=== PATIENT | female | born 1955 | race Caucasian/White ===

== ENCOUNTER 2019-04-10 07:32 | Emergency (ER) | payer BC ==
--- NOTE | 2019-04-10 07:50 | ER Document Report ---
ED Cardiac - General Stated Complaint: CHEST PRESSURE Time Seen by Provider: 04/10/19 07:43 Notes: 63-year-old female presents to the ER with chest pain. Patient stated woke her at 4 AM. She described a heaviness in her chest quickly followed by sensation of numbness and tingling in both her hands the pain was heaviness and radiate to her back. She denies any headache blurred vision. Denies extremity weakness but states both hands were numb and tingling. She denies any anxiety or hyperventilation. Denies any fever chills cough or sore throat denies calf pain leg swelling denies ankle swelling. Denies any abdominal pain. Denies nausea. States she did feel slightly short of breath at the time but does not now states she is pain-free at this time. She has not had an episode like this before. Came in via EMS for evaluation EMS gave the patient aspirin and she is feeling well. - Related Data Allergies/Adverse Reactions: Penicillins Adverse Reaction (Verified 04/10/19 07:49) procaine [From Novocain] Adverse Reaction (Verified 04/10/19 07:49) Tetanus Vaccines and Toxoid Adverse Reaction (Verified 04/10/19 07:49) Past Medical History - Social History Smoking Status: Former Smoker Family History: CAD Review of Systems - Review of Systems Constitutional: denies: Chills, Fever EENT: denies: Throat pain Cardiovascular: Chest pain, Dyspnea. denies: Edema Respiratory: denies: Cough, Short of breath Gastrointestinal: denies: Abdominal pain, Nausea, Vomiting Genitourinary: denies: Dysuria, Flank pain, Hematuria Musculoskeletal: Back pain Neurological/Psychological: denies: Headaches -: Yes All other systems reviewed and negative Physical Exam - Vital signs Vitals: Temp 97.8 F 04/10/19 08:00 - Notes Notes: GENERAL_APPEARANCE: well_nourished, alert, cooperative, no_acute_distress, no_obvious_discomfort. VITALS: reviewed, see vital signs table. HEAD: no_swelling\tenderness on the head. EYES: PERRL, EOMI, conjunctiva_clear. NOSE: no_nasal_discharge. MOUTH: (-)decreased moisture. THROAT: no_tonsilar_inflammation, no_airway_obstruction. no_lymphadenopathy NECK: supple, no_neck_tenderness, (-)thyromegaly. BACK: no_back_tenderness. CHEST_WALL: no_chest_tenderness. LUNGS: no_wheezing, no_rales, no_rhonchi, (-)accessory muscle use, good air exchange bilateral. HEART: normal_rate, normal_rhythm, normal_S1, normal_S2, (-)S3, (-)S4, no_murmur, no_rub. ABDOMEN: normal_BS, soft, no_abd_tenderness, (-)guarding, (-)rebound, no_organomegaly, no_abd_masses. EXTREMITIES: good pulses in all_extremities, no_swelling\tenderness in the extremities, no_edema. SKIN: warm, dry, good_color, no_rash. MENTAL_STATUS: speech_clear, oriented_X_3, normal_affect, responds_appropriately to questions. NEURO: Neg Motor or Sensory Deficits on exam, CN 2-12 intact, DTR 2+ symmetric x 4, No cerbellar signs Course - Re-evaluation Re-evalutation: 04/10/19 07:49 63-year-old female presents to the ER with chest discomfort that woke up at 4 AM. Patient is pain-free at this time the discomfort was heaviness in her chest rating to her back and she had bilateral upper extremity numbness and tingling. This may be anxiety or an anginal equivalent. Patient denies diabetes hypertension or hyperlipidemia denies any known heart disease. EKG shows a sinus rhythm with no acute abnormalities. We will get troponins. We will CTA her chest and some of the pain did radiate to her back to rule out PE or dissection. 04/10/19 12:28 Serial troponins are negative. CTA of the chest is negative there is a small groundglass opacity in the upper lobe. This is not a specific nodule however follow-up as needed I spoke with the patient and her family about this. They verbalized understanding will follow-up with her family doctor for this. Otherwise the patient looks well she is discomfort free. The patient did admit that she did have some spicy chicken wings before bed certainly this may contribute to that. I did explain to the patient even though things are very reassuring nothing is ever 100% 2- troponins are reassuring however there is still limitations to that. If she continues to have discomfort in 24 hours she is to return to be reevaluated if anything gets worse she is to return sooner otherwise follow-up with your family doctor for further care. - Vital Signs Vital signs: Temp Pulse Resp BP Pulse Ox 97.8 F 21 H 98 04/10/19 08:00 04/10/19 09:00 04/10/19 09:00 - Laboratory Result Diagrams: 04/10/19 07:12 04/10/19 07:12 Laboratory results interpreted by me: 04/10/19 07:12 RBC 6.20 H MCV 62 L MCH 20.0 L RDW 15.5 H [place] % (Auto) 18.3 H Absolute Monos (auto) 1.6 H - Diagnostic Test Radiology reviewed: Reports reviewed Radiology results interpreted by me: 04/10/19 12:28 Chest/Abdomen CTA 04/10/19 07:47 IMPRESSION: 1. No pulmonary emboli. 2. 4.3 mm ground-glass opacity in the medial aspect of the right upper lobe. Please see below for recommended follow-up. - EKG Interpretation by Me EKG shows normal: Sinus rhythm Rate: Normal Rhythm: NSR Discharge - Discharge Clinical Impression: Chest pain Qualifiers: Chest pain type: other chest pain Qualified Code(s): R07.89 - Other chest pain; R07.8 - Other chest pain Condition: Good Disposition: HOME, SELF-CARE Instructions: Chest Pain of Unclear Cause ([facility]) Additional Instructions: Please follow-up with your doctor for further care. If you continue to have discomfort please return in 24 hours to be rechecked if things get worse return as soon as possible.
[2019-04-10 07:56] LABS: ABSOLUTE EOSINOPHILS # (AUTO) 0.1 10^3/uL (0.0-0.6); ABSOLUTE LYMPHOCYTES (AUTO) 2.7 10^3/uL (0.5-4.7); ABSOLUTE MONOCYTES (AUTO) 1.6 10^3/uL (0.1-1.4); ABSOLUTE NEUT (AUTO) 4.1 10^3/uL (1.7-8.2); BASOPHILS % (AUTO) 0.1 % (0-2); EOSINOPHILS % (AUTO) 1.7 % (0-6); HEMATOCRIT 38.5 % (36.0-47.0); HEMOGLOBIN 12.4 g/dL (12.0-15.5); LYMPHOCYTES % (AUTO) 31.7 % (13-45); MEAN CORPUSCULAR HGB CONC 32.2 g/dL (32.0-36.0); MONOCYTES % (AUTO) 18.3 % (3-13); PLATELET COUNT 266 10^3/uL (150-450); RED CELL DISTRIBUTION WIDTH 15.5 % (11.5-14.0); SEGMENTED NEUTROPHILS % (AUTO) 48.2 % (42-78); TOTAL CELLS COUNTED % (AUTO) 100 %; WHITE BLOOD COUNT 8.6 10^3/uL (4.0-10.5)
[2019-04-10 08:01] LABS: ALBUMIN 4.7 g/dL (3.5-5.0); ALKALINE PHOSPHATASE 54 U/L (38-126); ANION GAP 9 (5-19); ASPARTATE AMINO TRANSFERASE 24 U/L (14-36); BILIRUBIN,DIRECT 0.1 mg/dL (0.0-0.4); BILIRUBIN,TOTAL 0.6 mg/dL (0.2-1.3); BLOOD UREA NITROGEN 15 mg/dL (7-20); CALCIUM 9.5 mg/dL (8.4-10.2); CARBON DIOXIDE 27 mmol/L (22-30); CHLORIDE 104 mmol/L (98-107); CREATINE KINASE 62 U/L (30-135); GLUCOSE 102 mg/dL (75-110); POTASSIUM 4.7 mmol/L (3.6-5.0); TOTAL PROTEIN 7.3 g/dL (6.3-8.2)
[2019-04-10 08:12] LABS: MEAN CORPUSCULAR VOLUME 62 fl (80-97)
[2019-04-10 08:13] LABS: CREATINE KINASE MB 0.43 ng/mL (<4.55)
[2019-04-10 08:14] LABS: TROPONIN I < 0.012 ng/mL
[2019-04-10 08:23] LABS: INTERNATIONAL RATION (INR) 0.94; PROTHROMBIN TIME 12.5 SEC (11.4-15.4)
[2019-04-10 08:34] LABS: PLATELET COMMENT ADEQUATE
--- NOTE | 2019-04-10 09:26 | RADIOLOGY REPORT (SQ) ---
EXAM DESCRIPTION: CTA CHEST COMPLETED DATE/TIME: 04/10/2019 9:08 am REASON FOR STUDY: CP to back COMPARISON: None. TECHNIQUE: CT scan of the chest performed using helical scanning technique with dynamic intravenous contrast injection. Images reviewed with lung, soft tissue and bone windows. Reconstructed coronal and sagittal MPR images reviewed. Additional 3 dimensional post-processing performed to develop Maximal Intensity Projection images (PR P). All images stored on PACS. All CT scanners at this facility use dose modulation, iterative reconstruction, and/or weight based d osing when appropriate to reduce radiation dose to as low as reasonably achievable (ALARA). [facility]: Dose Right [facility]: CareDose [facility]: Dose Right [facility]: Teradose 4D [facility]: Shut Down CONTRAST TYPE AND DOSE: contrast/concentration: Isovue 350.00 mg/ml; Total Contrast Delivered: 92.8 ml; Total Saline Delivered: 61.9 ml Contrast bolus optimized for the pulmonary arteries. Not diagnostic for the aorta. RENAL FUNCTION: BUN 15, creatinine 0.63 RADIATION DOSE: CT Rad equipment meets quality standard of care and radiation dose reduction technCostumeWorks ues were employed. CTDIvol: 9.9 - 14.3 mGy. DLP: 1019 mGy-cm. . LIMITATIONS: None. FINDINGS: LUNGS AND PLEURA: No consolidation or pleural effusions. No pneumothorax. On series 4, i mage 28 there is a small 4.3 mm ground-glass opacity. Based on Fleischner criteria no further evalua tion is needed. AORTA AND GREAT VESSELS: No aneurysm. Contrast bolus not optimized for the aorta. HEART: No pericardial effusion. No significant coronary artery calcifications. PULMONARY ARTERIES: No emboli visualized in the main pulmonary arteries or the segmental branches. HILAR AND MEDIASTINAL STRUCTURES: No identified masses or abnormal nodes. HARDWARE: None in the chest. UPPER ABDOMEN: No significant findings. Limited exam. THYROID AND OTHER SOFT TISSUES: No masses. No adenopathy. BONES: No acute or significant finding. 3D MIPS: Confirm above findings. OTHER: No other significant finding. IMPRESSION: 1. No pulmonary emboli. 2. 4.3 mm ground-glass opacity in the medial aspect of the right upper lobe. Please see below for r ecommended follow-up. COMMENT: Fleischner Criteria for Ground Glass Nodules: <6mm ground glass single nodule: No routine followup Quality ID # [id number]: Final reports with documentation of one or more dose reduction techniques (e.g., Au tomated exposure control, adjustment of the mA and/or kV according to patient size, use of iterative reconstruction technique) TECHNICAL DOCUMENTATION: JOB ID: [id number] [employer]- All Rights Reserved Reading location - IP/workstation name: [email or web address]
[2019-04-10 12:41] VITALS: BP 126/56
--- NOTE | 2019-04-10 14:29 | EKG REPORT ---
SEVERITY:- NORMAL ECG - SINUS RHYTHM : Confirmed by: Raul Lemons MD 10-Apr-2019 14:28:51
[2019-04-11 13:23] LABS: PATH REVIEW PATHOLOGIST REVIEWED
== END 2019-04-10 12:46 | disposition home or self-care (01) ==
LOC: ER 07:32
DX: R07.89 Other chest pain (principal); R20.0 Anesthesia of skin; R20.2 Paresthesia of skin; R06.02 Shortness of breath; Z87.59 Personal history of other complications of pregnancy, childbirth and the puerperium; Z82.49 Family history of ischemic heart disease and other diseases of the circulatory system
CPT/HCPCS: 36415; 71275; 80053; 82550; 82553; 83690; 84484; 85025; 85610; 93005; 93010; 99285